=== PATIENT | male | born 1980 | race Two or more races ===

== ENCOUNTER 2023-10-10 01:34 | Emergency (ER) | payer BC ==
[~2023-10-10] VITALS: Ht 175.3 cm; Wt 81.6 kg
[2023-10-10 03:37] VITALS: BP 136/85; TEMP 98; O2SAT 98
== END 2023-10-10 03:37 | disposition home or self-care (01) ==
LOC: ER 01:45
DX: F10.129 Alcohol abuse with intoxication, unspecified (principal); Y90.9 Presence of alcohol in blood, level not specified